=== PATIENT | female | born 1985 | race Caucasian/White ===

== ENCOUNTER 2019-04-09 14:24 | Emergency (ER) | payer OTHER ==
[2019-04-09] MEDS ORDERED: LIDOCAINE 1% 2 ML VIAL INJ ONE (14:54)
--- NOTE | 2019-04-09 15:13 | ED.PDOC ---
History of Present Illness - General Chief Complaint: Dental/Mouth Stated Complaint: right upper jaw pain Time Seen by Provider: 04/09/19 14:40 Source: patient Exam Limitations: no limitations - History of Present Illness Initial Comments: the patient's 33-year-old female presenting to emergency room secondary to dental pain in the right posterior upper molars. This started last night. No fever. No obvious abscess formation. There is obvious inflammation. She does have multiple dental caries in the area. She has 38 weeks . No other problems currently. Timing/Duration: 24 hours, getting worse Improving Factors: nothing Worsening Factors: nothing Associated Symptoms: denies symptoms Allergies/Adverse Reactions: Allergies Acetaminophen [From Darvocet-N] Allergy (Verified 04/09/19 14:51) Propoxyphene [From Darvocet-N] Allergy (Verified 04/09/19 14:51) Tramadol Allergy (Verified 04/09/19 14:51) Home Medications: Ambulatory Orders Moxibmxliowgw-Jqpn-Zahbbzkeau [Fioricet] 1 ea PO Q8H PRN #21 tab 04/09/19 Clindamycin HCl 300 mg PO Q8HR #20 cap 04/09/19 Review of Systems - Review of Systems Constitutional: States: no symptoms reported EENTM: States: see HPI Respiratory: States: no symptoms reported Cardiology: States: no symptoms reported Gastrointestinal/Abdominal: States: no symptoms reported Genitourinary: States: no symptoms reported Musculoskeletal: States: no symptoms reported Skin: States: no symptoms reported Neurological: States: no symptoms reported Endocrine: States: no symptoms reported Hematologic/Lymphatic: States: no symptoms reported All other Systems: No Change from Baseline Physical Exam - Physical Exam General Appearance: Alert, No apparent distress Eye Exam: bilateral normal Ears, Nose, Throat: hearing grossly normal, other - see history of present illness Neck: full range of motion, supple Respiratory: lungs clear, normal breath sounds, no respiratory distress, no accessory muscle use Cardiovascular/Chest: normal peripheral pulses, regular rate, rhythm, no edema Peripheral Pulses: radial,right: 2+, radial,left: 2+ Gastrointestinal/Abdominal: non tender - gravid, soft Rectal Exam: deferred Extremity: normal range of motion, no pedal edema, normal capillary refill Neurologic: human performance technologist II-XII nml as tested, alert, normal mood/affect, oriented x 3 Skin Exam: normal color Progress - Progress Progress: 04/09/19 15:13 the patient is a 33-year-old female presenting with infected dental caries to the right upper molars. The patient is being given a dose of clind amycin and Rocephin. She will be written for clindamycin for use for the next week. She'll also be written for some Fioricet for pain control. The patient reports that she is not allergic to Tylenol. ER warnings were given for any worsening. 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 [email or web address] [id number] Departure - Departure Clinical Impression: Dental caries ICD-10 Supporting Text: infected Disposition: Discharge to Home or Self Care Condition: Fair Departure Forms: ED Discharge - Pt. Copy, Patient Portal Self Enrollment Instructions: DI for Dental Pain Diet: regular diet Activity: increase activity as tolerated Prescriptions: Clindamycin HCl 300 mg PO Q8HR #20 cap Cixmposfxfdom-Otfn-Kiryjffigm [Fioricet] 1 ea PO Q8H PRN #21 tab PRN Reason: Pain Home Medications: Ambulatory Orders Rbhigojbasyqm-Cuwo-Vjaccroiqh [Fioricet] 1 ea PO Q8H PRN #21 tab 04/09/19 Clindamycin HCl 300 mg PO Q8HR #20 cap 04/09/19 Additional Instructions: the patient is a 33-year-old female presenting with infected dental caries to the right upper molars. The patient is being given a dose of clindamycin and Rocephin. She will be written for clindamycin for use for the next week. She'll also be written for some Fioricet for pain control. The patient reports that she is not allergic to Tylenol. ER warnings were given for any worsening. 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
[2019-04-09] MEDS: ACETAMINOPHEN-CAFF-BUTALBITAL 1 EA TAB PO ONE (15:25)
[2019-04-09] MEDS: CLINDAMYCIN HCL CAP 150 MG CAP PO ONE (15:26)
[2019-04-09] MEDS: cefTRIAXone SODIUM 1 GM VIAL IM ONE (15:27)
[2019-04-09 16:07] VITALS: BP 111/68; TEMP 96; O2SAT 96
== END 2019-04-09 16:06 | disposition home or self-care (01) ==
LOC: ER 14:24
DX: O99.613 Diseases of the digestive system complicating pregnancy, third trimester (principal); K02.9 Dental caries, unspecified; O09.523 Supervision of elderly multigravida, third trimester; Z3A.38 38 weeks gestation of pregnancy; Z88.6 Allergy status to analgesic agent; Z88.8 Allergy status to other drugs, medicaments and biological substances

== ENCOUNTER → 2020-04-08 | Outpatient (CLI) | payer OTHER | LOC: YCFC.O 16:23 | PROVIDERS: ATTEND Nurse Practitioner | DX: Z20.828 Contact with and (suspected) exposure to other viral communicable diseases (principal) ==

== ENCOUNTER 2020-04-12 00:56 | Emergency (ER) | payer SELFPAY ==
[2020-04-12] MEDS ORDERED: TETRACAINE HCL 0.5% OPHTH SOL 1 DROP ONE (01:00)
[2020-04-12] MEDS ORDERED: FLUORESCEIN SODIUM OPHTH STRIP ONE (01:00)
[2020-04-12 01:08] VITALS: TEMP 98.6
[2020-04-12] MEDS: TETRACAINE HCL 0.5% OPHTH SOL 1 DROP OPHTH ONE (01:11)
[2020-04-12] MEDS ORDERED: CIPROFLOXACIN 0.3% OPHTH SOL 1 DROP ONE (01:14)
[2020-04-12] MEDS: HYDROcodone 10MG/APAP 325MG 1 EA TAB PO ONE (01:18)
[2020-04-12] MEDS: CIPROFLOXACIN 0.3% OPHTH SOL 1 DROP LEFT_EYE ONE (01:18)
--- NOTE | 2020-04-12 01:19 | ED.PDOC ---
History of Present Illness - General Chief Complaint: Eye Problems Stated Complaint: possible left eye papercut Time Seen by Provider: 04/12/20 01:04 Additional Information: Patient is a 34-year-old female who presents to the ED with chief complaint of scratch to her left eye. Patient indicates that she was playing with her daughter this afternoon at approximately 4 PM. Her daughter had paper in her hand and the paper somehow scratched her eye. Patient had mild pain initially but it has slowly gotten worse and it is moderate to severe presently. Patient also has blurred vision in the eye. There is no discharge. Patient does not we ar contact lenses or glasses. She is otherwise asymptomatic. - History of Present Illness Allergies/Adverse Reactions: Allergies Propoxyphene [From Darvocet-N] Allergy (Verified 04/09/19 14:51) Tramadol Allergy (Verified 04/09/19 14:51) Home Medications: Ambulatory Orders Shwjkbtppsfku-Ieiz-Risvqjkhqj [Fioricet] 1 ea PO Q8H PRN #21 tab 04/09/19 Clindamycin HCl 300 mg PO Q8HR #20 cap 04/09/19 Acetaminophen W/ Codeine [Tylenol W/ CODEINE #3] 1 ea PO Q6H PRN #20 04/12/20 Review of Systems - Review of Systems Constitutional: States: no symptoms reported. Denies: chills, fever EENTM: States: see HPI Respiratory: States: no symptoms reported. Denies: cough, short of breath Cardiology: States: no symptoms reported. Denies: chest pain, palpitations Gastrointestinal/Abdominal: States: no symptoms reported All other Systems: Reviewed and Negative Past Medical History (General) - Patient Medical History Hx Seizures: No Hx Stroke: No Hx Dementia: No Hx Asthma: No Hx of COPD: No Hx Cardiac Disorders: No Hx Congestive Heart Failure: No Hx Pacemaker: No Hx Hypertension: No Hx Thyroid Disease: No Hx Diabetes: No Hx Gastroesophageal Reflux: No Hx Renal Disease: No Hx Cancer: No Hx of HIV: No Hx Hepatitis C: No Hx MRSA: No - Vaccination History Hx Tetanus, Diphtheria Vaccination: Yes - 2-3 years ago Hx Influenza Vaccination: No - Social History Hx Tobacco Use: No Hx Alcohol Use: No Family Medical History - Family History Mother Family History: No Known Physical Exam - Physical Exam General Appearance: Obvious distress, Well Developed, Well Nourished Eye Exam: left other - Right eye normal inspection. Lids and lashes bilateral eyes normal. Left eye with diffuse uptake of fluorescein dye on Lewis lamp testing over the pupil and iris. Extraocular muscles are normal. PERRLA. Neck: supple, normal inspection Cardiovascular/Respiratory: no respiratory distress Neurologic: no motor/sensory deficits, alert, normal mood/affect, oriented x 3 Skin Exam: normal color, warm/dry Progress - Progress Progress: 04/12/20 01:20 Patient's pain is completely relieved following tetracaine administration to the eye. Patient has diffuse fluorescein uptake to the left eye and I suspect that the foreign body has abraded patient's cornea diffusely. Patient is able to count fingers but is unable to read the eye chart. Cipro drops have been placed in patient's eye and I have discussed with her that she should place a drop in the eye every hour until she is seen by The eye doctor at [facility] in the morning. I discussed with patient absolute need to follow-up with the child care lead teacher later on today (Sunday) for reevaluation and definitive management and care. Patient voices understanding and willingness to comply with plan. Return to ED precautions discussed to include uncontrolled pain, discharge from the eye, worsening photophobia. 04/12/20 01:26 Note: Narcotic E prescription function is inoperative and patient will require hardcopy Tylenol 3 prescription. Departure - Departure Clinical Impression: Corneal abrasion Qualifiers: Encounter type: initial encounter Laterality: left Qualified Code(s): S05.02XA - Injury of conjunctiva and corneal abrasion without foreign body, left eye, initial encounter Time of Disposition: :23 Disposition: Discharge to Home or Self Care Condition: Good Departure Forms: ED Discharge - Pt. Copy, Patient Portal Self Enrollment Instructions: DI for Eye Pain, Corneal Abrasion (DC) Prescriptions: Acetaminophen W/ Codeine [Tylenol W/ CODEINE #3] 1 ea PO Q6H PRN #20 PRN Reason: Pain Home Medications: Ambulatory Orders Yjaeczjgklgym-Uohk-Wqvbobvvxb [Fioricet] 1 ea PO Q8H PRN #21 tab 04/09/19 Clindamycin HCl 300 mg PO Q8HR #20 cap 04/09/19 Acetaminophen W/ Codeine [Tylenol W/ CODEINE #3] 1 ea PO Q6H PRN #20 04/12/20 Additional Instructions: Call [facility] first thing this morning to make a follow-up appointment for later on today. Be certain to use the Cipro eyedrops given to you today in the emergency room to take home hourly, 1 drop to the left eye until seen by the child care lead teacher.
[2020-04-12 01:33] VITALS: BP 120/83; O2SAT 97
== END 2020-04-12 01:33 | disposition home or self-care (01) ==
LOC: ER 00:56
DX: S05.02XA Injury of conjunctiva and corneal abrasion without foreign body, left eye, initial encounter (principal); W45.8XXA Other foreign body or object entering through skin, initial encounter; Y93.89 Activity, other specified; Y92.9 Unspecified place or not applicable; Z88.5 Allergy status to narcotic agent